=== PATIENT | male | born 1970 | race Caucasian/White ===

== ENCOUNTER 2017-08-07 14:46 | Emergency (ER) | payer OTHER ==
[2017-08-07 14:50] VITALS: BP 133/70; PULSE 88; TEMP 97.9; BMI 29.8
--- NOTE | 2017-08-07 16:15 | PDOC ---
History of Present Illness - General History Source: Patient (Patient fell while at work. ) Exam Limitations: No Limitations - History of Present Illness Occurred: reports: yesterday (Morning. ) Method of Injury: Yes: fell <Guzman Nation - Last Filed: 08/07/17 16:40> <Katie Krishnamurthy - Last Filed: 08/07/17 18:21> - General Chief Complaint: Pain, Acute Stated Complaint: R ANKLE PAIN Time Seen by Provider: 08/07/17 14:48 Past History <Guzman Nation - Last Filed: 08/07/17 16:40> - Past Medical History Other medical history: DENIES - Psycho/Social/Smoking Cessation Hx Anxiety: No Suicidal Ideation: No Smoking History: Never smoked Hx Alcohol Use: No Drug/Substance Use Hx: No Substance Use Type: None <Katie Krishnamurthy S - Last Filed: 08/07/17 18:21> - Past Medical History Allergies/Adverse Reactions: Allergies Allergy/AdvReac Type Severity Reaction Status Date / Time No Known Allergies Allergy Verified 08/07/17 14:47 Home Medications: Ambulatory Orders Ibuprofen [Motrin -] 600 mg PO TID #21 tablet 08/07/17 Review of Systems - Review of Systems Able to Perform ROS?: Yes Musculoskeletal: Yes: Other (Right ankle swelling. ) All Other Systems: Reviewed and Negative <Guzman Nation - Last Filed: 08/07/17 16:40> *Physical Exam - Vital Signs Last Vital Signs Temp Pulse Resp BP Pulse Ox 97.9 F 88 18 133/70 100 08/07/17 14:46 08/07/17 14:46 08/07/17 14:46 08/07/17 14:46 08/07/17 14:46 - Physical Exam Extremity: positive: Swelling (Right Foot normal. Right Achilles normal. ) <Guzman Nation - Last Filed: 08/07/17 16:40> - Vital Signs Last Vital Signs Temp Pulse Resp BP Pulse Ox 97.9 F 88 18 133/70 100 08/07/17 14:46 08/07/17 14:46 08/07/17 14:46 08/07/17 14:46 08/07/17 14:46 <Katie Krishnamurthy S - Last Filed: 08/07/17 18:21> *DC/Admit/Observation/Transfer - Attestations Scribe Attestion: 08/07/17 16:39 Documentation prepared by Guzman Nation, acting as medical records specialist for Katie Krishnamurthy MD. <Guzman Nation - Last Filed: 08/07/17 16:40> - Discharge Dispostion Admit: No <Katie Krishnamurthy - Last Filed: 08/07/17 18:21> Diagnosis at time of Disposition: Ankle sprain Qualifiers: Encounter type: initial encounter Laterality: left - Discharge Dispostion Disposition: HOME Condition at time of disposition: Improved - Prescriptions Prescriptions: Ibuprofen [Motrin -] 600 mg PO TID #21 tablet - Referrals Referrals: Andrés Lawrence MD [Staff Physician] - - Patient Instructions Printed Discharge Instructions: DI for Ankle Sprain Additional Instructions: Elevation, rest call MD for apointment - Post Discharge Activity Work/School Note: Back to Work
== END 2017-08-07 18:39 | disposition home or self-care (01) ==
LOC: FER 14:46
DX: S93.401A Sprain of unspecified ligament of right ankle, initial encounter (principal); W18.39XA Other fall on same level, initial encounter; Y93.89 Activity, other specified; Y92.9 Unspecified place or not applicable; Y99.0 Civilian activity done for income or pay
CPT/HCPCS: 73610-TC-RT; 99281-25